=== PATIENT | male | born 1995 | race Caucasian/White ===

== ENCOUNTER 2018-02-25 20:11 | Emergency (ER) | payer BC ==
[2018-02-25 20:31] VITALS: BP 123/78
[2018-02-25] MEDS ORDERED: Tetan/Diph/Pertus SYR(Tdap)* 0.5 ML SYR(BOOSTRIX) use SYR IM ONE (20:47)
--- NOTE | 2018-02-25 20:48 | UC ---
General HPI - HPI Summary HPI Summary: Patient states he is visiting from out of town and was fishing with his family early this morning when he had a fishhook in the tip of his right index finger. He removed it. He states that he washed aggressively. He is here because his last tetanus shot is unknown and he would like to be updated. He states that the hook was whole when it came out and he has no foreign body sensation. He denies any fever or chills. He denies any swelling or loss of function. He has no other complaints. - History of Current Complaint Chief Complaint: Levi Stated Complaint: FISH HOOK IN RIGHT HAND Time Seen by Provider: 02/25/18 20:28 Hx Obtained From: Patient Onset/Duration: Sudden Onset Pain Intensity: 0 Aggravating: nothing Alleviating: nothing Associated Signs & Symptoms: Negative: Fever - Allergy/Home Medications Allergies/Adverse Reactions: Allergies Allergy/AdvReac Type Severity Reaction Status Date / Time No Known Allergies Allergy Verified 02/25/18 20:30 Home Medications: Home Medications NK [No Home Medications Reported] 02/25/18 [History Confirmed 02/25/18] PMH/Surg Hx/FS Hx/Imm Hx Previously Healthy: Yes - Surgical History Surgical History: Yes Surgery Procedure, Year, and Place: TONSILLECTOMY - Family History Known Family History: Positive: None - Social History Occupation: Student Alcohol Use: None Substance Use Type: None Smoking Status (MU): Light Every Day Tobacco Smoker Type: Cigarettes Amount Used/How Often: 10 P/D Household Exposure Type: Cigarettes - Immunization History Hx Tetanus, Diphtheria Vaccination: No Vaccination Up to Date: Yes Review of Systems Constitutional: Negative Skin: Other - pw R index Eyes: Negative ENT: Negative Respiratory: Negative Cardiovascular: Negative Gastrointestinal: Negative Genitourinary: Negative Motor: Negative Neurovascular: Negative Musculoskeletal: Negative Neurological: Negative Psychological: Negative Is Patient Immunocompromised?: No All Other Systems Reviewed And Are Negative: Yes Physical Exam Triage Information Reviewed: Yes Appearance: Well-Appearing Vital Signs: Initial Vital Signs Temp 98.4 F 02/25/18 20:27 Pulse 92 02/25/18 20:27 Resp 16 02/25/18 20:27 BP 123/78 02/25/18 20:27 Pulse Ox 99 02/25/18 20:27 Vital Signs Reviewed: Yes Eyes: Positive: Conjunctiva Clear ENT: Positive: Normal ENT inspection Neck: Positive: Supple, Nontender, No Lymphadenopathy Respiratory: Positive: Lungs clear, Normal breath sounds Cardiovascular: Positive: RRR, No Murmur Abdomen Description: Positive: Nontender, No Organomegaly, Soft Bowel Sounds: Positive: Present Musculoskeletal: Positive: ROM Intact Neurological: Positive: Alert Psychological: Positive: Age Appropriate Behavior Skin Exam: Normal, Other - Tiny pink dot volar distal R index as site of PW. No swelling, erythema, warmth or tenderness. Finger has full s/v/m function. Course/Dx - Course Course Of Treatment: Pt declined antibiotic tx of PW. - Differential Dx - Multi-Symptom Provider Diagnoses: PW R index finger. tetanus update Discharge - Sign-Out/Discharge Documenting (check all that apply): Patient Departure - Discharge Plan Condition: Stable Disposition: HOME Patient Education Materials: Puncture Wound (DC) Referrals: Non Staff,Doctor [Primary Care Provider] - Additional Instructions: FOLLOW UP WITH YOUR DOCTOR IN [place] NEEDED - Billing Disposition and Condition Condition: STABLE Disposition: Home
== END 2018-02-25 20:54 | disposition home or self-care (01) ==
LOC: UCCORT 20:11
DX: S61.230A Puncture wound without foreign body of right index finger without damage to nail, initial encounter (principal); W45.8XXA Other foreign body or object entering through skin, initial encounter; Y93.89 Activity, other specified; Y92.838 Other recreation area as the place of occurrence of the external cause; Z23 Encounter for immunization; F17.210 Nicotine dependence, cigarettes, uncomplicated
CPT/HCPCS: 90471; 90715; 99201; G0463